=== PATIENT | female | born 1950 | race African-American/Black ===

== ENCOUNTER 2017-12-31 18:53 | Emergency (ER) | payer MEDICARE ==
[2017-12-31 19:24] LABS: ADD MAN DIFF? NO
[2017-12-31 19:25] LABS: BASO # 0.1 x10^3/uL (0.0-0.2); BASO % 1 % (0-3); EOS # 0.2 x10^3/uL (0.0-0.7); EOS % 1 % (0-3); HEMATOCRIT 36.4 % (36.0-47.0); HEMOGLOBIN 12.3 g/dL (12.0-15.5); LYMPH # 2.6 x10^3/uL (1.0-4.8); LYMPH % 21 % (24-48); MEAN CORPUSCULAR HEMOGLOBIN 31 pg (25-35); MEAN CORPUSCULAR HGB CONC 34 g/dL (31-37); MEAN CORPUSCULAR VOLUME 91 fL (79-100); MONO # 0.8 x10^3/uL (0.0-1.1); MONO % 7 % (0-9); NEUT # 8.9 x10^3uL (1.8-7.7); NEUT % 71 % (31-73); PLATELET COUNT 248 x10^3/uL (140-400); RED BLOOD COUNT 3.99 x10^6/uL (3.50-5.40); RED CELL DISTRIBUTION WIDTH 14.9 % (11.5-14.5); WHITE BLOOD COUNT 12.6 x10^3/uL (4.0-11.0)
[2017-12-31] MEDS: ONDANSETRON PF 4 MG/2 ML VIAL. IV ×2 (19:30)
[2017-12-31] MEDS: IV NORMAL SALINE 1000ML BAG 1,000 ML IV ×2 (19:30)
[2017-12-31 20:04] LABS: ANION GAP 9 (6-14); BLOOD UREA NITROGEN 25 mg/dL (7-20); CALCIUM 8.9 mg/dL (8.5-10.1); CARBON DIOXIDE 27 mmol/L (21-32); CHLORIDE 105 mmol/L (98-107); CREATININE 1.5 mg/dL (0.6-1.0); GFR 42.2; GLUCOSE 154 mg/dL (70-99); SODIUM 141 mmol/L (136-145)
[2017-12-31 20:18] LABS: TROPONINI < 0.017 ng/mL (0.000-0.055)
== END 2017-12-31 20:54 | disposition home or self-care (01) ==
LOC: ER 20:54
DX: T67.5XXA Heat exhaustion, unspecified, initial encounter (principal); R11.2 Nausea with vomiting, unspecified; E86.0 Dehydration; E11.9 Type 2 diabetes mellitus without complications; Z88.2 Allergy status to sulfonamides
CPT/HCPCS: 36415; 80048; 84484; 85025; 93005; 96361; 96374; 99285-25; J2405; J7030

== ENCOUNTER → 2020-11-22 | Outpatient (CLI) | payer MEDICARE ==
[2017-12-31 18:58] VITALS: BP 100/53
[~2020-11-22] MED LIST: ASCO500C PO; ASPI-630 PO; ATOR10TA60 PO; CHOL500050 PO; CICL15CR2 TP; DICL100G54 TP; ESTRADIOL CREAM VAG; FURO-68 PO; INSU100I16 SQ; INSU100V31 SQ; INSU300I SQ; LIRA0.6P2 SQ; LISI-517 PO; METF500T16 PO; METR500T PO; NITR100C62 PO; OMEP40CA45 PO; ONDA4TAB12 PO; OXYC1TAB15 PO; PANT20TA2 PO; POLY17PO29 PO; POTA10TA12 PO; PREG100C PO; PREG200C PO; SERT50TA PO; TRIA1TAB3 PO
[2020-11-22 08:58] LABS: BASO # 0.1 x10^3/uL (0.0-0.2); BASO % 1 % (0-3); EOS # 0.2 x10^3/uL (0.0-0.7); EOS % 3 % (0-3); HEMATOCRIT 34.3 % (36.0-47.0); HEMOGLOBIN 11.5 g/dL (12.0-15.5); LYMPH # 1.8 x10^3/uL (1.0-4.8); LYMPH % 23 % (24-48); MEAN CORPUSCULAR HEMOGLOBIN 31 pg (25-35); MEAN CORPUSCULAR HGB CONC 34 g/dL (31-37); MEAN CORPUSCULAR VOLUME 92 fL (79-100); MONO # 0.8 x10^3/uL (0.0-1.1); MONO % 10 % (0-9); NEUT # 4.8 x10^3/uL (1.8-7.7); NEUT % 63 % (31-73); PLATELET COUNT 189 x10^3/uL (140-400); RED BLOOD COUNT 3.73 x10^6/uL (3.50-5.40); WHITE BLOOD COUNT 7.7 x10^3/uL (4.0-11.0)
[2020-11-22 09:48] LABS: ALBUMIN 3.6 g/dL (3.4-5.0); CALCIUM 9.4 mg/dL (8.5-10.1); GFR 66.7; POTASSIUM 4.1 mmol/L (3.5-5.1)
[2020-11-22 11:32] LABS: BILIRUBIN,URINE NEGATIVE (NEG); CLARITY,URINE CLEAR; COLOR,URINE YELLOW; NITRITE,URINE NEGATIVE (NEG); PH,URINE 6.5 (<5.0-8.0); PROTEIN,URINE NEGATIVE (NEG-TRACE)
[2020-11-22 11:39] LABS: BACTERIA,URINE FEW /HPF (0-FEW)
--- NOTE | 2020-11-22 14:51 | RAD ---
EXAM: Chest, 2 views. HISTORY: Covid pneumonia. COMPARISON: None. FINDINGS: 2 views of the chest are obtained. There is no infiltrate, pleural effusion or pneumothorax . The heart is normal in size. IMPRESSION: No acute pulmonary finding. Electronically signed by: Palma Fuller MD (11/22/2020 2:48 PM) [facility]
[2020-11-23 00:17] LABS: HEMOGLOBIN A1C 7.8 % (4.8-5.6)
== END ==
LOC: SURGPAT 11:43
PROVIDERS: ATTEND Orthopaedic Surgery
DX: Z01.818 Encounter for other preprocedural examination (principal); M17.12 Unilateral primary osteoarthritis, left knee; Z86.16 Personal history of COVID-19; Z87.01 Personal history of pneumonia (recurrent)
CPT/HCPCS: 36415; 71046; 80048; 81001; 82040; 82306; 83036; 85025; 85610; 85651; 85730; 87086; 87641